=== PATIENT | male | born 1955 | race Hispanic/Latino ===

== ENCOUNTER 2021-08-10 17:56 | Emergency (ER) | payer MEDICARE, SELFPAY ==
--- NOTE | 2021-08-10 18:01 | ED.SKABFB ---
HPI - Skin/Abscess/Foreign Bdy General Chief complaint: Skin/Abscess/Foreign Body Stated complaint: rash Time Seen by Provider: 08/10/21 18:01 Source: patient and RN notes reviewed History of Present Illness HPI narrative: Patient is 66-year-old male who presents the urgent care with complaints of a itchy raised rash bilateral forearms, bilateral lower legs and one area near the groin to the right inner thigh. Patient states he has been using hydrocortisone cream to the area. States that it showed up on August 08 after he had been outside with some family. Denies of any fevers. No other acute complaints. No acute distress noted. Patient aware of the plan of care. Some parts of this dictation were generated by voice recognition software and may contain typographical and/or grammatical inaccuracies. Related Data Home Medications Medication Instructions Recorded Confirmed aspirin 81 mg capsule 81 mg PO DAILY 08/10/21 08/10/21 cholecalciferol (vitamin D3) 25 25 mcg PO DAILY 08/10/21 08/10/21 mcg (1,000 unit) capsule (Vitamin D3) glimepiride 4 mg tablet 4 mg PO DAILY 08/10/21 08/10/21 Allergies Allergy/AdvReac Type Severity Reaction Status Date / Time No Known Allergies Allergy Verified 08/10/21 18:11 Review of Systems Review of Systems: CONSTITUTIONAL: Denies fever, chills, or sweats. EYES: Denies visual changes, redness, or discharge. ENT: Denies rhinorrhea, congestion, sore throat, or otalgia. CARDIOVASCULAR: Denies chest pain, palpitations, or edema. RESPIRATORY: Denies cough or dyspnea. GASTROINTESTINAL: Denies abdominal pain, nausea, vomiting, or diarrhea. GENITOURINARY: Denies dysuria or hematuria. SKIN: Reports of an itchy rash to bilateral forearms and lower legs MUSCULOSKELETAL: Denies back pain, joint pain, or myalgia. NEUROLOGIC: Denies headache, numbness, or weakness. All other systems reviewed are negative, except as documented in HPI. PMFSH Comments At the time of my signature, I reviewed and agree with the nursing past medical, surgical, social, and family history. There is no relevant family history pertinent to the patient complaint. Exam Narrative: GENERAL: This is a well-nourished, well-developed patient, in no apparent distress. HEAD: normocephalic, atraumatic. EYES: PERRL. Sclera clear/white. Vision is grossly intact. EARS: External ears normal NOSE: External nose normal with no obvious nasal discharge, nares without redness, no rhinorrhea. THROAT: Mucous membranes moist NECK: Neck supple CARDIOVASCULAR: Regular rate and rhythm without murmurs, gallops, or rubs. RESPIRATORY: Clear to auscultation. Breath sounds equal bilaterally. No wheezes, rales, or rhonchi. SKIN: Pustular rhus dermatitis noted to bilateral forearms and scattered to bilateral lower legs. NEURO: awake, alert, and oriented to person, place and time. There were no obvious focal neurologic abnormalities. EXTREMITIES: No clubbing, cyanosis, or edema. Course Course Level of Care: Express Care Visit Vital Signs Vital signs: Vital Signs Temperature 98.7 F 08/10/21 18:08 Pulse Rate 87 08/10/21 18:08 Respiratory Rate 14 08/10/21 18:08 Blood Pressure 134/79 08/10/21 18:08 Pulse Oximetry 98 08/10/21 18:08 Oxygen Delivery Room Air 08/10/21 18:08 Temperature 98.7 F 08/10/21 18:14 Pulse Rate 87 08/10/21 18:14 Respiratory Rate 14 08/10/21 18:14 Blood Pressure 134/79 08/10/21 18:14 Pulse Oximetry 98 08/10/21 18:14 Oxygen Delivery Room Air 08/10/21 18:14 Reviewed MDM - Skin/Abscess/Foreign Bdy MDM Narrative Medical decision making narrative: Advised patient to complete the oral steroid regimen as prescribed. Be sure to eat and drink with the medication. Use a prescription cream to the affected areas avoiding the groin, underarms and face. Continue Benadryl or an oral daily antihistamine such as Amna/Claritin/Zyrtec. Follow-up with your PCP within 2 to 5 days or for worsening
[2021-08-10 18:08] VITALS: BP 134/79; PULSE 87; RESP 14; TEMP 37.1; O2SAT 98
[2021-08-10 18:14] VITALS: BP 134/79; PULSE 87; RESP 14; TEMP 37.1; O2SAT 98
== END 2021-08-10 18:42 | disposition home or self-care (01) ==
PROVIDERS: Emergency Provider Nurse Practitioner Family; PCP Family Medicine
DX: L25.9 Unspecified contact dermatitis, unspecified cause (principal); Z79.82 Long term (current) use of aspirin; E11.9 Type 2 diabetes mellitus without complications; Z79.84 Long term (current) use of oral hypoglycemic drugs
CPT/HCPCS: 99213; G0463